=== PATIENT | male | born 1940 | race Caucasian/White ===

== ENCOUNTER 2016-06-02 00:54 | Emergency (ER) | payer OTHER ==
[~2016-06-02] VITALS: Ht 177.8 cm; Wt 90.9 kg
[~2016-06-02 00:54] MED LIST: ALEVE PM CAPLE1 EACH PO; ALTACE5 M1 PO; ASPIR 8181 M1 PO; ASPIR-LOW81 MG PO; ASPIR-TRIN325 MG PO; ASPIRIN EC325 MG PO; AVELOX; BAYER ASPIRIN325 M1 PO; CARDIZEM CD120 M1 PO; CARDIZEM CD120 MG PO; CARTIA XT120 MG PO; CARTIA XT240 MG PO; CIPROFLOXACIN500 M1 PO; COUMADIN,JANTOVE1 MG PO; DIGOXIN125 MCG PO; GLYBURID-METFO1 EAC3 PO; IMDUR60 MG PO; ISOSORBIDE DINI30 MG PO; JANUVIA100 MG PO; KEFLEX500 MG PO; LANOXIN,DIGI0.125 MG PO; LEVEMIR100 UNIT/2 SC; LO-DOSE ASPIRIN81 M2 PO; LYRICA100 MG PO; LYRICA75 MG PO; METAMUCIL0.52 GM PO; METFORMIN; METFORMIN HCL1000 MG PO; METOPROLOL SUCC25 MG PO; MOXIFLOXACIN H400 MG PO; NIACIN500 MG PO; OXYCODONE HCL10 MG PO; OXYCODONE HCL5 MG PO; PRADAXA150 MG PO; PRAVACHOL10 MG PO; PRAVASTATIN SOD10 MG PO; PRILOSEC40 MG PO; RAMIPRIL2.5 MG PO; RAMIPRIL5 MG PO; ROXICODONE5 MG PO; SOTALOL160 MG PO; TYLENOL EXTRA500 MG PO; VICODIN 5-3001 EACH PO; XARELTO20 MG PO; ZOCOR10 M1 PO; ZOLOFT100 MG PO
[2016-06-02 02:16] LABS: EOSINOPHIL (%) 2.5 % (0-5); EOSINOPHIL COUNT 0.1 K/uL (0-0.3); IMMATURE GRANULOCYTE (%) 0.4 % (0.0-0.7); INSTRUMENT ABS NEUTROPHIL CT 2.7 K/uL; LYMPHOCYTE COUNT 1.6 K/uL (1.0-2.8); MCH 29.9 PG (29.0-34.0); MCHC 35.4 G/DL (30.0-36.0); MCV 84.5 FL (86-99); MEAN PLAT.VOLUME 13.3 uM^3 (9.0-12.4); MONOCYTE (%) 8.5 % (3-12); MONOCYTE COUNT 0.4 K/uL (0-0.8); NEUTROPHIL (%) 55.8 % (45-76); NEUTROPHIL COUNT 2.7 K/uL (1.8-6.4); PLATELET COUNT 107 K/uL (156-360); RBC DIS.WIDTH-SD 45.9 % (39-53); RED BLOOD COUNT 4.38 M/uL (4.00-5.50); WHITE BLOOD COUNT 4.8 K/uL (4.1-10.2)
[2016-06-02 02:27] LABS: CHLORIDE 104 mEq/L (99-109); POTASSIUM 4.4 mEq/L (3.7-5.4); SODIUM 137 mEq/L (136-147)
[2016-06-02 02:28] LABS: INTER. NORMALIZED RATIO 1.3; PROTHROMBIN TIME 13.3 (9.2-11.2); PTT 31.6 (25-32)
[2016-06-02 02:30] LABS: ANION GAP 16 MEQ/L (2-14)
[2016-06-02 02:33] LABS: GFR ESTIMATE (CALCULATED) > 59 mL/min/
[2016-06-02 02:37] LABS: TROP-I INTERPRETATION NEGATIVE; TROPONIN-I < 0.01 ng/mL (0.0-0.30)
[2016-06-02 02:42] LABS: GLUCOSE 156 mg/dL (70-99)
[2016-06-02 02:47] LABS: UREA NITROGEN (BUN) 20 mg/dL (9-23)
[2016-06-02 03:28] VITALS: BP 117/94
== END 2016-06-02 03:48 | disposition home or self-care (01) ==
LOC: EME → EDBD 00:54 → EME 00:54
PROVIDERS: Emergency Medicine
DX: S70.01XA Contusion of right hip, initial encounter (principal); E11.9 Type 2 diabetes mellitus without complications; I10 Essential (primary) hypertension; W01.198A Fall on same level from slipping, tripping and stumbling with subsequent striking against other object, initial encounter; I69.354 Hemiplegia and hemiparesis following cerebral infarction affecting left non-dominant side; E78.5 Hyperlipidemia, unspecified; I25.2 Old myocardial infarction; Z79.01 Long term (current) use of anticoagulants; Z86.73 Personal history of transient ischemic attack (TIA), and cerebral infarction without residual deficits
CPT/HCPCS: 70450; 71010; 73502; 73630; 80048; 80162; 81003; 84484; 85025; 85610; 85730; 93005; 99281; 99284

== ENCOUNTER 2016-06-23 14:49 | Emergency (ER) | payer OTHER ==
[~2016-06-23] VITALS: Ht 179.1 cm; Wt 91.4 kg
[2016-06-23] MEDS ORDERED: XARELTO20 MG PO (16:47)
[2016-06-23 17:37] VITALS: BP 129/74
== END 2016-06-23 17:55 | disposition home or self-care (01) ==
LOC: EME 14:49
DX: I82.412 Acute embolism and thrombosis of left femoral vein (principal); I82.432 Acute embolism and thrombosis of left popliteal vein; I73.9 Peripheral vascular disease, unspecified; I48.91 Unspecified atrial fibrillation; Z79.01 Long term (current) use of anticoagulants; I10 Essential (primary) hypertension; E78.5 Hyperlipidemia, unspecified; E11.9 Type 2 diabetes mellitus without complications; Z79.82 Long term (current) use of aspirin; Z86.718 Personal history of other venous thrombosis and embolism; Z87.891 Personal history of nicotine dependence
CPT/HCPCS: 99281; 99284

== ENCOUNTER → 2016-07-22 | Outpatient (CLI) | payer MEDICARE, OTHER | END | disposition home or self-care (01) | LOC: CDC 12:14 | DX: I48.91 Unspecified atrial fibrillation (principal); R94.31 Abnormal electrocardiogram [ECG] [EKG] | CPT/HCPCS: 93000 ==

== ENCOUNTER 2016-10-21 17:08 | Inpatient (IN) | payer OTHER ==
[~2016-10-21] VITALS: Ht 177.8 cm; Wt 84.7 kg
[2016-10-21] VITALS (8 sets, daily range): BP systolic 117–145; BP diastolic 66–92
[2016-10-21 18:13] LABS: EOSINOPHIL (%) 1.1 % (0-5); EOSINOPHIL COUNT 0.1 K/uL (0-0.3); HEMATOCRIT 35.1 % (38.0-50.0); IMMATURE GRANULOCYTE (%) 0.2 % (0.0-0.7); INSTRUMENT ABS NEUTROPHIL CT 3.2 K/uL; LYMPHOCYTE COUNT 1.7 K/uL (1.0-2.8); MCH 30.1 PG (29.0-34.0); MCHC 34.8 G/DL (30.0-36.0); MCV 86.7 FL (86-99); MEAN PLAT.VOLUME 13.3 uM^3 (9.0-12.4); MONOCYTE (%) 8.3 % (3-12); MONOCYTE COUNT 0.5 K/uL (0-0.8); NEUTROPHIL (%) 58.5 % (45-76); NEUTROPHIL COUNT 3.2 K/uL (1.8-6.4); PLATELET COUNT 100 K/uL (156-360); RBC DIS.WIDTH-SD 50.2 % (39-53); RED BLOOD COUNT 4.05 M/uL (4.00-5.50); WHITE BLOOD COUNT 5.4 K/uL (4.1-10.2)
[2016-10-21 18:23] LABS: CHLORIDE 106 mEq/L (99-109); POTASSIUM 4.8 mEq/L (3.7-5.4); SODIUM 138 mEq/L (136-147)
[2016-10-21 18:25] LABS: GLUCOSE 95 mg/dL (70-99)
[2016-10-21 18:27] LABS: ANION GAP 13 MEQ/L (2-14)
[2016-10-21 18:29] LABS: ALKALINE PHOSPHATASE 73 IU/L (3-129); GFR ESTIMATE (CALCULATED) > 59 mL/min/
[2016-10-21 18:30] LABS: UREA NITROGEN (BUN) 19 mg/dL (9-23)
[2016-10-21 18:40] LABS: C-REACTIVE PROTEIN 57.5 MG/L (0-10); SAMPLE HEMOLYSIS CHECK 0; SAMPLE ICTERIC CHECK 0; SAMPLE LIPEMIA CHECK 0
[2016-10-21 18:54] LABS: ERTH.SED.RATE 13 MM/HR (0-20)
[2016-10-21] MEDS ORDERED: TYLENOL EXTRA500 MG PO (19:10)
[2016-10-21] MEDS ORDERED: ZOLOFT50 MG PO (19:10)
[2016-10-21] MEDS ORDERED: ALEVE PM CAPLE1 EACH PO (19:13)
[2016-10-21 23:20] LABS: POINT-OF-CARE METER ID UU13113747
[2016-10-22 03:40] VITALS: BP 129/66
[2016-10-22 03:48] VITALS: BP 129/66
[2016-10-22 06:56] LABS: ANION GAP 8 MEQ/L (2-14); CHLORIDE 107 MEQ/L (99-109); GFR ESTIMATE (CALCULATED) > 59 mL/min/; GLUCOSE 106 mg/dL (70-99); POTASSIUM 4.6 MEQ/L (3.7-5.4); SAMPLE HEMOLYSIS CHECK 0; SAMPLE ICTERIC CHECK 0; SAMPLE LIPEMIA CHECK 0; SODIUM 139 MEQ/L (136-147); UREA NITROGEN (BUN) 17 mg/dL (9-23)
[2016-10-22 07:15] LABS: POINT-OF-CARE METER ID UU13113747
[2016-10-22 07:20] LABS: EOSINOPHIL (%) 2.5 % (0-5); EOSINOPHIL COUNT 0.1 K/uL (0-0.3); IMMATURE GRANULOCYTE (%) 0.4 % (0.0-0.7); INSTRUMENT ABS NEUTROPHIL CT 2.5 K/uL; LYMPHOCYTE COUNT 1.7 K/uL (1.0-2.8); MCH 30.2 PG (29.0-34.0); MCHC 34.4 G/DL (30.0-36.0); MCV 87.9 FL (86-99); MONOCYTE (%) 10.1 % (3-12); MONOCYTE COUNT 0.5 K/uL (0-0.8); NEUTROPHIL (%) 50.9 % (45-76); NEUTROPHIL COUNT 2.5 K/uL (1.8-6.4); PLATELET COUNT 79 K/uL (156-360); RBC DIS.WIDTH-SD 51.7 % (39-53); RED BLOOD COUNT 3.64 M/uL (4.00-5.50); WHITE BLOOD COUNT 4.8 K/uL (4.1-10.2)
[2016-10-22 07:42] VITALS: BP 108/58
[2016-10-22 11:10] VITALS: BP 143/76
[2016-10-22 11:26] LABS: POINT-OF-CARE METER ID UU13113747
[2016-10-22 16:10] VITALS: BP 121/62
[2016-10-22 16:29] LABS: POINT-OF-CARE METER ID UU14117124
[2016-10-22 20:53] VITALS: BP 144/69
[2016-10-22 21:38] LABS: POINT-OF-CARE METER ID UU14117124
[2016-10-23] VITALS (7 sets, daily range): BP systolic 110–147; BP diastolic 59–69
[2016-10-23 06:44] LABS: POINT-OF-CARE METER ID UU14117124
[2016-10-23 11:29] LABS: POINT-OF-CARE METER ID UU14117124
[2016-10-23 15:32] LABS: POINT-OF-CARE METER ID UU14117124
[2016-10-23 21:30] LABS: POINT-OF-CARE METER ID UU14117124
[2016-10-24 03:40] VITALS: BP 105/55
[2016-10-24 06:43] LABS: EOSINOPHIL (%) 2.1 % (0-5); EOSINOPHIL COUNT 0.1 K/uL (0-0.3); HEMATOCRIT 31.8 % (38.0-50.0); IMMATURE GRANULOCYTE (%) 0.2 % (0.0-0.7); INSTRUMENT ABS NEUTROPHIL CT 2.4 K/uL; LYMPHOCYTE COUNT 1.5 K/uL (1.0-2.8); MCHC 34.3 G/DL (30.0-36.0); MCV 87.6 FL (86-99); MONOCYTE (%) 8.5 % (3-12); MONOCYTE COUNT 0.4 K/uL (0-0.8); NEUTROPHIL (%) 54.8 % (45-76); NEUTROPHIL COUNT 2.4 K/uL (1.8-6.4); RBC DIS.WIDTH-CV 15.9 % (11.8-14.6); RBC DIS.WIDTH-SD 50.9 % (39-53); RED BLOOD COUNT 3.63 M/uL (4.00-5.50); WHITE BLOOD COUNT 4.3 K/uL (4.1-10.2)
[2016-10-24 06:47] LABS: POINT-OF-CARE METER ID UU14117124
[2016-10-24 06:58] LABS: ALKALINE PHOSPHATASE 52 IU/L (3-129); ANION GAP 10 MEQ/L (2-14); CHLORIDE 109 MEQ/L (99-109); GFR ESTIMATE (CALCULATED) > 59 mL/min/; GLUCOSE 97 mg/dL (70-99); POTASSIUM 4.7 MEQ/L (3.7-5.4); SAMPLE HEMOLYSIS CHECK 0; SAMPLE ICTERIC CHECK 0; SAMPLE LIPEMIA CHECK 0; SODIUM 142 MEQ/L (136-147); TOTAL BILIRUBIN 0.8 MG/DL (0.0-1.0); UREA NITROGEN (BUN) 9 mg/dL (9-23)
[2016-10-24 07:15] LABS: MEAN PLAT.VOLUME 12.6 uM^3 (9.0-12.4); PLAT.SUFFICIENCY DECREASED; PLATELET COUNT 83 K/uL (156-360)
[2016-10-24 07:32] VITALS: BP 120/64
[2016-10-24 11:26] VITALS: BP 133/79
[2016-10-24 11:51] LABS: POINT-OF-CARE METER ID UU14208753
[2016-10-24 15:40] VITALS: BP 131/60
[2016-10-24 16:51] LABS: POINT-OF-CARE METER ID UU14208753
[2016-10-24 19:30] VITALS: BP 133/61
[2016-10-25 01:04] VITALS: BP 121/57
[2016-10-25 05:05] VITALS: BP 104/56
[2016-10-25 06:27] LABS: POINT-OF-CARE METER ID UU14208753
[2016-10-25 08:42] VITALS: BP 110/60
[2016-10-25 12:01] LABS: POINT-OF-CARE METER ID UU14208753
[2016-10-25 16:40] VITALS: BP 134/62
[2016-10-25 16:48] LABS: POINT-OF-CARE METER ID UU14208753
[2016-10-25 23:14] VITALS: BP 142/58
[2016-10-26 04:16] VITALS: BP 109/62
[2016-10-26 06:42] LABS: POINT-OF-CARE METER ID UU14188577
[2016-10-26 08:35] VITALS: BP 168/64
[2016-10-26 11:59] VITALS: BP 120/62
[2016-10-26 16:54] VITALS: BP 124/59
[2016-10-26 17:08] LABS: POINT-OF-CARE METER ID UU14208753
[2016-10-26 20:13] VITALS: BP 144/72
[2016-10-26 22:19] LABS: POINT-OF-CARE METER ID UU14208753
[2016-10-26 23:25] VITALS: BP 155/72
[2016-10-27 04:19] VITALS: BP 125/61
[2016-10-27] MEDS ORDERED: SERTRALINE HCL100 MG PO (07:03)
[2016-10-27] MEDS ORDERED: PRAVASTATIN SOD40 MG PO (07:03)
[2016-10-27] MEDS ORDERED: VANCOMYCIN HCL1 GM IV (07:09)
[2016-10-27] MEDS ORDERED: CEFEPIME-D2 GM/50 ML IV (07:09)
[2016-10-27 08:42] VITALS: BP 133/69
[2016-10-27 11:43] VITALS: BP 119/69
[2016-10-27 11:43] LABS: POINT-OF-CARE METER ID UU14117124
== END 2016-10-27 18:27 | disposition home or self-care (01) | DRG 638 ==
LOC: EME 17:08 → EDOF 19:38 → 3EAST 19:38 → CANRESERV 19:42 → ENRESERV 19:42 → CANRESERV 19:44 → ENRESERV 20:53 → EDOF 10-22 08:31 → ENRESERV 10-22 12:30 → 3EAST 10-22 14:02
PROVIDERS: Emergency Medicine; Hospitalist; Nurse Practitioner Adult Health; Pediatrics; Physician Assistant Medical
PROC: 02HV33Z Insertion of Infusion Device into Superior Vena Cava, Percutaneous Approach (ICD-10-PCS; principal; 2016-10-27)
DX: E11.69 Type 2 diabetes mellitus with other specified complication (principal); E11.42 Type 2 diabetes mellitus with diabetic polyneuropathy; E11.621 Type 2 diabetes mellitus with foot ulcer; M86.172 Other acute osteomyelitis, left ankle and foot; E11.51 Type 2 diabetes mellitus with diabetic peripheral angiopathy without gangrene; E11.628 Type 2 diabetes mellitus with other skin complications; L89.622 Pressure ulcer of left heel, stage 2; L97.529 Non-pressure chronic ulcer of other part of left foot with unspecified severity; E78.5 Hyperlipidemia, unspecified; I10 Essential (primary) hypertension; F32.9 Major depressive disorder, single episode, unspecified; L03.032 Cellulitis of left toe; Z87.891 Personal history of nicotine dependence; I48.2 Chronic atrial fibrillation; Z79.01 Long term (current) use of anticoagulants; I25.10 Atherosclerotic heart disease of native coronary artery without angina pectoris; Z86.73 Personal history of transient ischemic attack (TIA), and cerebral infarction without residual deficits; Z86.718 Personal history of other venous thrombosis and embolism; Z79.84 Long term (current) use of oral hypoglycemic drugs; Z79.82 Long term (current) use of aspirin; Z82.49 Family history of ischemic heart disease and other diseases of the circulatory system; Z83.3 Family history of diabetes mellitus; Z82.3 Family history of stroke; Z80.7 Family history of other malignant neoplasms of lymphoid, hematopoietic and related tissues; Z79.4 Long term (current) use of insulin; S91.301D Unspecified open wound, right foot, subsequent encounter; B95.62 Methicillin resistant Staphylococcus aureus infection as the cause of diseases classified elsewhere; B96.5 Pseudomonas (aeruginosa) (mallei) (pseudomallei) as the cause of diseases classified elsewhere; I35.0 Nonrheumatic aortic (valve) stenosis; K43.9 Ventral hernia without obstruction or gangrene; M48.06 Spinal stenosis, lumbar region; I89.1 Lymphangitis; K21.9 Gastro-esophageal reflux disease without esophagitis; Z79.899 Other long term (current) drug therapy; R74.0 Nonspecific elevation of levels of transaminase and lactic acid dehydrogenase [LDH]
CPT/HCPCS: 71010; 73720; 80048; 80053; 80202; 82565; 82948; 83605; 85025; 85651; 86140; 87040; 87070; 87075; 87076; 87077; 87147; 87186; 87205; 99281; 99285; A6260; C1769; J0692; J1815; J2543; J3370; J7050; J7120

== ENCOUNTER 2017-06-29 23:56 | Emergency (ER) | payer OTHER ==
[~2017-06-29] VITALS: Ht 177.8 cm; Wt 83.1 kg
[~2017-06-29 23:56] MED LIST changes: +CEFEPIME-D2 GM/50 ML IV; +PRAVASTATIN SOD40 MG PO; +SERTRALINE HCL100 MG PO; +VANCOMYCIN HCL1 GM IV; +ZOLOFT50 MG PO
[2017-06-30 01:22] LABS: HEMATOCRIT 30.8 % (38.0-50.0); HEMOGLOBIN 11.1 G/DL (12.5-16.6); MCH 30.6 PG (29.0-34.0); MCV 84.8 FL (86-99); PLATELET COUNT 69 K/uL (156-360); RBC DIS.WIDTH-CV 15.6 % (11.8-14.6); RBC DIS.WIDTH-SD 47.6 % (39-53); RED BLOOD COUNT 3.63 M/uL (4.00-5.50); WHITE BLOOD COUNT 5.5 K/uL (4.1-10.2)
[2017-06-30 01:28] LABS: CHLORIDE 100 mEq/L (99-109); POTASSIUM 4.7 mEq/L (3.7-5.4); SODIUM 134 mEq/L (136-147)
[2017-06-30 01:33] LABS: CREATININE 1.7 mg/dL (0.6-1.3); GFR ESTIMATE (CALCULATED) 42 mL/min/ (58.99-99999)
[2017-06-30 01:34] LABS: UREA NITROGEN (BUN) 25 mg/dL (9-23)
[2017-06-30 01:37] LABS: TROP-I INTERPRETATION NEGATIVE; TROPONIN-I 0.02 ng/mL (0.0-0.30)
[2017-06-30 01:42] LABS: GLUCOSE 513 mg/dL (70-99)
[2017-06-30 02:05] LABS: APPEARANCE CLEAR ((CLEAR)); BILIRUBIN NEGATIVE; BLOOD NEGATIVE; COLOR STRAW ((YELLOW)); GLUCOSE (STRIP) >=500; KETONES NEGATIVE; LEUKOCYTES NEGATIVE; NITRITE NEGATIVE; PROTEIN (STRIP) 30; UCUL ADDED? NO; UROBILINOGEN 0.2 MG/DL (0.2-1.0)
[2017-06-30 05:29] VITALS: BP 128/55
== END 2017-06-30 05:33 | disposition home or self-care (01) ==
LOC: EME → EDBD 23:56 → EME 23:56
PROVIDERS: Emergency Medicine
DX: E11.65 Type 2 diabetes mellitus with hyperglycemia (principal); S70.01XA Contusion of right hip, initial encounter; Z79.4 Long term (current) use of insulin; Z91.14 Patient's other noncompliance with medication regimen; Z79.01 Long term (current) use of anticoagulants; Z79.82 Long term (current) use of aspirin; W18.39XA Other fall on same level, initial encounter; Z86.718 Personal history of other venous thrombosis and embolism; I10 Essential (primary) hypertension; Z86.73 Personal history of transient ischemic attack (TIA), and cerebral infarction without residual deficits; Z87.891 Personal history of nicotine dependence
CPT/HCPCS: 70450; 71046; 73502; 80048; 81003; 82010; 82803; 82948; 83605; 84484; 85027; 93005; 99281; 99285; J7120

== ENCOUNTER 2017-08-01 15:24 | Inpatient (IN) | payer OTHER ==
[~2017-08-01] VITALS: Ht 177.8 cm; Wt 93.5 kg
[2017-08-01 16:44] LABS: INTER. NORMALIZED RATIO 3.5
[2017-08-01 16:47] LABS: PTT 33.7 SEC (25-37)
[2017-08-01 16:48] LABS: BASOPHIL (%) 0.2 % (0-1); EOSINOPHIL (%) 0.2 % (0-5); HEMATOCRIT 28.8 % (38.0-50.0); HEMOGLOBIN 10.3 G/DL (12.5-16.6); IMMATURE GRANULOCYTE (%) 0.2 % (0.0-0.7); LYMPHOCYTE (%) 9.2 % (15-42); LYMPHOCYTE COUNT 0.4 K/uL (1.0-2.8); MCH 29.2 PG (29.0-34.0); MCHC 35.8 G/DL (30.0-36.0); MCV 81.6 FL (86-99); MONOCYTE (%) 10.7 % (3-12); MONOCYTE COUNT 0.5 K/uL (0-0.8); NEUTROPHIL (%) 79.5 % (45-76); NEUTROPHIL COUNT 3.6 K/uL (1.8-6.4); PLATELET COUNT 69 K/uL (156-360); RED BLOOD COUNT 3.53 M/uL (4.00-5.50); WHITE BLOOD COUNT 4.5 K/uL (4.1-10.2)
[2017-08-01 16:49] LABS: ALBUMIN 3.6 g/dL (3.2-4.8); CHLORIDE 101 mEq/L (99-109); POTASSIUM 4.8 mEq/L (3.7-5.4); SODIUM 133 mEq/L (136-147)
[2017-08-01 16:50] LABS: MAGNESIUM 1.8 mg/dL (1.3-2.7)
[2017-08-01 16:51] LABS: GLUCOSE 304 mg/dL (70-99); TOTAL PROTEIN 7.1 g/dL (6.4-8.3)
[2017-08-01 16:53] LABS: TOTAL BILIRUBIN 1.5 mg/dL (0.0-1.0)
[2017-08-01 16:55] LABS: ALKALINE PHOSPHATASE 108 IU/L (3-129); CREATININE 1.6 mg/dL (0.6-1.3); GFR ESTIMATE (CALCULATED) 45 mL/min/ (58.99-99999)
[2017-08-01 16:56] LABS: UREA NITROGEN (BUN) 32 mg/dL (9-23)
[2017-08-01 16:57] LABS: AST (GOT) 20 IU/L (2-34)
[2017-08-01 16:58] LABS: ALT (GPT) 16 IU/L (3-49)
[2017-08-01] MEDS ORDERED: PRAVACHOL40 MG PO (16:58)
[2017-08-01] MEDS ORDERED: ZOLOFT50 MG PO (16:59)
[2017-08-01] MEDS ORDERED: TOUJEO SOL300 UNIT/1 SC (16:59)
[2017-08-01] MEDS ORDERED: HUMALOG100 UNIT/1 SC (17:00)
[2017-08-01 18:40] LABS: APPEARANCE CLEAR ((CLEAR)); BILIRUBIN NEGATIVE; BLOOD NEGATIVE; COLOR YELLOW ((YELLOW)); GLUCOSE (STRIP) >=500; KETONES NEGATIVE; LEUKOCYTES NEGATIVE; NITRITE NEGATIVE; PROTEIN (STRIP) 100
[2017-08-01 19:02] LABS: BACTERIA RARE /HPF; EPITHELIAL CELLS NONE SEEN /HPF; HYALINE CASTS 0-5 /LPF; MUCUS TRACE /LPF; RED BLOOD CELLS 0-5 /HPF (0-5); UCUL ADDED? NO; WHITE BLOOD CELLS 0-5 /HPF (0-5)
[2017-08-01 21:42] VITALS: BP 118/68
[2017-08-01 23:02] VITALS: BP 85/45
[2017-08-02 00:38] VITALS: BP 102/52
[2017-08-02 03:27] VITALS: BP 115/58
[2017-08-02 05:55] LABS: BASOPHIL (%) 0.3 % (0-1); EOSINOPHIL (%) 0 % (0-5); HEMATOCRIT 27.1 % (38.0-50.0); HEMOGLOBIN 9.1 G/DL (12.5-16.6); IMMATURE GRANULOCYTE (%) 0.3 % (0.0-0.7); LYMPHOCYTE (%) 10.3 % (15-42); LYMPHOCYTE COUNT 0.4 K/uL (1.0-2.8); MCH 28.3 PG (29.0-34.0); MCHC 33.6 G/DL (30.0-36.0); MCV 84.2 FL (86-99); MONOCYTE COUNT 0.4 K/uL (0-0.8); NEUTROPHIL (%) 79.1 % (45-76); NEUTROPHIL COUNT 3.2 K/uL (1.8-6.4); PLATELET COUNT 54 K/uL (156-360); RBC DIS.WIDTH-CV 15.5 % (11.8-14.6); RBC DIS.WIDTH-SD 47.1 % (39-53); RED BLOOD COUNT 3.22 M/uL (4.00-5.50)
[2017-08-02 06:19] LABS: CHLORIDE 106 MEQ/L (99-109); CREATININE 1.3 MG/DL (0.6-1.3); GFR ESTIMATE (CALCULATED) 57 mL/min/ (58.99-99999); GLUCOSE 195 mg/dL (70-99); POTASSIUM 4.7 MEQ/L (3.7-5.4); SODIUM 134 MEQ/L (136-147); UREA NITROGEN (BUN) 23 mg/dL (9-23)
[2017-08-02 07:32] VITALS: BP 101/56
[2017-08-02 11:12] VITALS: BP 101/60
[2017-08-02 16:20] VITALS: BP 97/50
[2017-08-02 23:06] VITALS: BP 106/52
[2017-08-03] VITALS (14 sets, daily range): BP systolic 101–156; BP diastolic 54–75
[2017-08-03 05:35] LABS: HEMATOCRIT 26.7 % (38.0-50.0); HEMOGLOBIN 8.9 G/DL (12.5-16.6); MCHC 33.3 G/DL (30.0-36.0); PLATELET COUNT 54 K/uL (156-360); RBC DIS.WIDTH-CV 15.5 % (11.8-14.6); RBC DIS.WIDTH-SD 47.2 % (39-53); RED BLOOD COUNT 3.18 M/uL (4.00-5.50); WHITE BLOOD COUNT 5.3 K/uL (4.1-10.2)
[2017-08-03 05:55] LABS: ALBUMIN 2.8 G/DL (3.2-4.8); ALKALINE PHOSPHATASE 78 IU/L (3-129); ALT (GPT) 13 IU/L (3-49); AST (GOT) 20 IU/L (2-34); CHLORIDE 105 MEQ/L (99-109); CREATININE 1.4 MG/DL (0.6-1.3); GFR ESTIMATE (CALCULATED) 52 mL/min/ (58.99-99999); GLUCOSE 140 mg/dL (70-99); POTASSIUM 4.4 MEQ/L (3.7-5.4); SODIUM 134 MEQ/L (136-147); TOTAL BILIRUBIN 1.3 MG/DL (0.0-1.0); TOTAL PROTEIN 5.3 G/DL (6.4-8.3); UREA NITROGEN (BUN) 20 mg/dL (9-23)
[2017-08-03 06:07] LABS: ABS NEUTROPHIL COUNT 4.3; ANISOCYTOSIS 1+; BASOPHILS 0.9 %; EOSINOPHIL ABS CT 0; LYMPHOCYTES 12.3 % (15.0-45.0); MICROCYTOSIS 1+; MONOCYTES 5.3 % (0-9.0); OVALOCYTES 3+; PLAT.SUFFICIENCY VERY DECREASED; POIKILOCYTOSIS 3+; SEG.NEUTROPHILS 67.5 % (46.0-76.0)
[2017-08-03 09:31] LABS: TROP-I INTERPRETATION NEGATIVE; TROPONIN-I 0.06 ng/mL (0.0-0.30)
[2017-08-03 15:52] LABS: TROP-I INTERPRETATION NEGATIVE; TROPONIN-I 0.05 ng/mL (0.0-0.30)
[2017-08-03 20:47] LABS: TROP-I INTERPRETATION NEGATIVE; TROPONIN-I 0.04 ng/mL (0.0-0.30)
[2017-08-04] VITALS (7 sets, daily range): BP systolic 107–128; BP diastolic 52–72
[2017-08-04 07:15] LABS: BASOPHIL (%) 0.1 % (0-1); EOSINOPHIL (%) 0.1 % (0-5); HEMATOCRIT 25.5 % (38.0-50.0); HEMOGLOBIN 8.8 G/DL (12.5-16.6); IMMATURE GRANULOCYTE (%) 0.3 % (0.0-0.7); LYMPHOCYTE (%) 15.1 % (15-42); LYMPHOCYTE COUNT 1.1 K/uL (1.0-2.8); MCH 28.8 PG (29.0-34.0); MCHC 34.5 G/DL (30.0-36.0); MCV 83.3 FL (86-99); MONOCYTE (%) 8.4 % (3-12); MONOCYTE COUNT 0.6 K/uL (0-0.8); NEUTROPHIL COUNT 5.5 K/uL (1.8-6.4); RBC DIS.WIDTH-CV 15.9 % (11.8-14.6); RED BLOOD COUNT 3.06 M/uL (4.00-5.50); WHITE BLOOD COUNT 7.2 K/uL (4.1-10.2)
[2017-08-04 07:36] LABS: ALBUMIN 2.8 G/DL (3.2-4.8); ALKALINE PHOSPHATASE 74 IU/L (3-129); ALT (GPT) 17 IU/L (3-49); AST (GOT) 20 IU/L (2-34); CHLORIDE 104 MEQ/L (99-109); CREATININE 1.4 MG/DL (0.6-1.3); GFR ESTIMATE (CALCULATED) 52 mL/min/ (58.99-99999); GLUCOSE 130 mg/dL (70-99); POTASSIUM 3.7 MEQ/L (3.7-5.4); SODIUM 134 MEQ/L (136-147); TOTAL BILIRUBIN 1.7 MG/DL (0.0-1.0); TOTAL PROTEIN 5.6 G/DL (6.4-8.3); UREA NITROGEN (BUN) 19 mg/dL (9-23)
[2017-08-04 07:58] LABS: PLAT.SUFFICIENCY DECREASED; PLATELET COUNT 56 K/uL (156-360)
[2017-08-04 10:19] LABS: HEMOGLOBIN A1c (GLYCOHEMOGLOB) 8.7 % (Below 5.7)
[2017-08-04 18:01] LABS: HEMATOCRIT 26.3 % (38.0-50.0); HEMOGLOBIN 8.7 G/DL (12.5-16.6); MCV 83.2 FL (86-99)
[2017-08-05 00:06] VITALS: BP 122/64
[2017-08-05 02:32] VITALS: BP 126/70
[2017-08-05 04:05] LABS: BASOPHIL (%) 0.2 % (0-1); EOSINOPHIL (%) 0.9 % (0-5); EOSINOPHIL COUNT 0.1 K/uL (0-0.3); HEMATOCRIT 23.9 % (38.0-50.0); HEMOGLOBIN 8.4 G/DL (12.5-16.6); IMMATURE GRANULOCYTE (%) 0.4 % (0.0-0.7); LYMPHOCYTE (%) 18.1 % (15-42); MCH 28.9 PG (29.0-34.0); MCHC 35.1 G/DL (30.0-36.0); MCV 82.1 FL (86-99); MONOCYTE (%) 7.8 % (3-12); MONOCYTE COUNT 0.4 K/uL (0-0.8); NEUTROPHIL (%) 72.6 % (45-76); PLATELET COUNT 60 K/uL (156-360); RBC DIS.WIDTH-CV 15.6 % (11.8-14.6); RBC DIS.WIDTH-SD 46.7 % (39-53); RED BLOOD COUNT 2.91 M/uL (4.00-5.50); WHITE BLOOD COUNT 5.5 K/uL (4.1-10.2)
[2017-08-05 04:23] LABS: CHLORIDE 106 mEq/L (99-109); POTASSIUM 3.6 mEq/L (3.7-5.4); SODIUM 135 mEq/L (136-147)
[2017-08-05 04:25] LABS: GLUCOSE 140 mg/dL (70-99)
[2017-08-05 04:29] LABS: CREATININE 1.2 mg/dL (0.6-1.3); GFR ESTIMATE (CALCULATED) > 59 mL/min/ (58.99-99999); UREA NITROGEN (BUN) 23 mg/dL (9-23)
[2017-08-05 07:44] VITALS: BP 131/70
[2017-08-05 12:24] VITALS: BP 128/65
[2017-08-05 20:16] VITALS: BP 137/84
[2017-08-05 23:55] VITALS: BP 123/85
[2017-08-06 04:15] VITALS: BP 117/67
[2017-08-06 05:09] LABS: CHLORIDE 108 mEq/L (99-109); POTASSIUM 4.1 mEq/L (3.7-5.4); SODIUM 138 mEq/L (136-147)
[2017-08-06 05:10] LABS: GLUCOSE 132 mg/dL (70-99)
[2017-08-06 05:14] LABS: CREATININE 1.4 mg/dL (0.6-1.3); GFR ESTIMATE (CALCULATED) 52 mL/min/ (58.99-99999)
[2017-08-06 05:15] LABS: BASOPHIL (%) 0.3 % (0-1); EOSINOPHIL (%) 2.8 % (0-5); EOSINOPHIL COUNT 0.1 K/uL (0-0.3); HEMATOCRIT 23.7 % (38.0-50.0); HEMOGLOBIN 8.1 G/DL (12.5-16.6); IMMATURE GRANULOCYTE (%) 0.3 % (0.0-0.7); LYMPHOCYTE (%) 27.9 % (15-42); LYMPHOCYTE COUNT 1.1 K/uL (1.0-2.8); MCH 28.5 PG (29.0-34.0); MCHC 34.2 G/DL (30.0-36.0); MCV 83.5 FL (86-99); MONOCYTE (%) 8.4 % (3-12); MONOCYTE COUNT 0.3 K/uL (0-0.8); NEUTROPHIL (%) 60.3 % (45-76); NEUTROPHIL COUNT 2.4 K/uL (1.8-6.4); PLATELET COUNT 66 K/uL (156-360); RBC DIS.WIDTH-CV 15.7 % (11.8-14.6); RBC DIS.WIDTH-SD 47.4 % (39-53); RED BLOOD COUNT 2.84 M/uL (4.00-5.50); UREA NITROGEN (BUN) 22 mg/dL (9-23); WHITE BLOOD COUNT 3.9 K/uL (4.1-10.2)
[2017-08-06 08:15] VITALS: BP 162/67
[2017-08-06 11:45] VITALS: BP 127/59
[2017-08-06 16:52] VITALS: BP 141/69
[2017-08-06 19:10] VITALS: BP 136/60
[2017-08-06 23:33] VITALS: BP 110/56
[2017-08-07] VITALS (7 sets, daily range): BP systolic 108–149; BP diastolic 56–76
[2017-08-07 05:59] LABS: BASOPHIL (%) 0.3 % (0-1); EOSINOPHIL (%) 2.7 % (0-5); EOSINOPHIL COUNT 0.1 K/uL (0-0.3); HEMATOCRIT 24.1 % (38.0-50.0); HEMOGLOBIN 7.9 G/DL (12.5-16.6); IMMATURE GRANULOCYTE (%) 0.6 % (0.0-0.7); LYMPHOCYTE (%) 32.7 % (15-42); LYMPHOCYTE COUNT 1.1 K/uL (1.0-2.8); MCH 27.6 PG (29.0-34.0); MCHC 32.8 G/DL (30.0-36.0); MCV 84.3 FL (86-99); MONOCYTE (%) 10.4 % (3-12); MONOCYTE COUNT 0.4 K/uL (0-0.8); NEUTROPHIL (%) 53.3 % (45-76); NEUTROPHIL COUNT 1.8 K/uL (1.8-6.4); RBC DIS.WIDTH-CV 15.7 % (11.8-14.6); RBC DIS.WIDTH-SD 48.9 % (39-53); RED BLOOD COUNT 2.86 M/uL (4.00-5.50); WHITE BLOOD COUNT 3.4 K/uL (4.1-10.2)
[2017-08-07 06:16] LABS: CHLORIDE 108 MEQ/L (99-109); CREATININE 1.3 MG/DL (0.6-1.3); GFR ESTIMATE (CALCULATED) 57 mL/min/ (58.99-99999); GLUCOSE 133 mg/dL (70-99); SODIUM 139 MEQ/L (136-147); UREA NITROGEN (BUN) 21 mg/dL (9-23)
[2017-08-07 06:57] LABS: PLAT.SUFFICIENCY DECREASED; PLATELET COUNT 73 K/uL (156-360)
[2017-08-08 00:11] VITALS: BP 151/75
[2017-08-08 01:26] VITALS: BP 117/59
[2017-08-08 05:35] LABS: HEMATOCRIT 27.4 % (38.0-50.0); MCH 27.7 PG (29.0-34.0); MCHC 32.8 G/DL (30.0-36.0); MCV 84.3 FL (86-99); PLATELET COUNT 72 K/uL (156-360); RBC DIS.WIDTH-CV 15.4 % (11.8-14.6); RBC DIS.WIDTH-SD 47.1 % (39-53); RED BLOOD COUNT 3.25 M/uL (4.00-5.50); WHITE BLOOD COUNT 3.2 K/uL (4.1-10.2)
[2017-08-08 07:35] VITALS: BP 151/66
[2017-08-08 12:10] VITALS: BP 142/68
[2017-08-08 17:12] VITALS: BP 133/72
[2017-08-08 19:55] VITALS: BP 154/74
[2017-08-09] VITALS (7 sets, daily range): BP systolic 119–144; BP diastolic 56–85
[2017-08-09 06:34] LABS: HEMATOCRIT 27.9 % (38.0-50.0); HEMOGLOBIN 9.2 G/DL (12.5-16.6); MCH 28.2 PG (29.0-34.0); MCV 85.6 FL (86-99); RBC DIS.WIDTH-CV 15.6 % (11.8-14.6); RBC DIS.WIDTH-SD 47.8 % (39-53); RED BLOOD COUNT 3.26 M/uL (4.00-5.50); WHITE BLOOD COUNT 3.8 K/uL (4.1-10.2)
[2017-08-09 06:44] LABS: PLATELET COUNT 95 K/uL (156-360)
[2017-08-10 03:16] VITALS: BP 125/64
[2017-08-10 06:09] LABS: HEMATOCRIT 27.4 % (38.0-50.0); HEMOGLOBIN 8.9 G/DL (12.5-16.6); MCH 27.6 PG (29.0-34.0); MCHC 32.5 G/DL (30.0-36.0); MCV 84.8 FL (86-99); PLATELET COUNT 110 K/uL (156-360); RBC DIS.WIDTH-CV 15.4 % (11.8-14.6); RBC DIS.WIDTH-SD 46.7 % (39-53); RED BLOOD COUNT 3.23 M/uL (4.00-5.50); WHITE BLOOD COUNT 4.1 K/uL (4.1-10.2)
[2017-08-10 07:13] VITALS: BP 140/62
[2017-08-10 11:23] VITALS: BP 120/65
[2017-08-10 15:12] VITALS: BP 138/63
[2017-08-10 15:24] LABS: HEMATOCRIT 26.7 % (38.0-50.0); HEMOGLOBIN 8.8 G/DL (12.5-16.6); MCH 28.1 PG (29.0-34.0); MCV 85.3 FL (86-99); PLATELET COUNT 117 K/uL (156-360); RBC DIS.WIDTH-CV 15.7 % (11.8-14.6); RBC DIS.WIDTH-SD 48.3 % (39-53); RED BLOOD COUNT 3.13 M/uL (4.00-5.50); WHITE BLOOD COUNT 3.8 K/uL (4.1-10.2)
[2017-08-10 19:31] VITALS: BP 143/67
[2017-08-11] VITALS (7 sets, daily range): BP systolic 121–155; BP diastolic 58–69
[2017-08-11 06:06] LABS: ERTH.SED.RATE 44 MM/HR (0-20)
[2017-08-11 09:05] LABS: DIGOXIN 0.6 ng/mL (0.8-2.0); HEMATOCRIT 27.6 % (38.0-50.0); HEMOGLOBIN 9.1 G/DL (12.5-16.6); MCH 28.2 PG (29.0-34.0); MCV 85.4 FL (86-99); RBC DIS.WIDTH-CV 15.5 % (11.8-14.6); RED BLOOD COUNT 3.23 M/uL (4.00-5.50); WHITE BLOOD COUNT 3.9 K/uL (4.1-10.2)
[2017-08-11 09:21] LABS: PLATELET COUNT 104 K/uL (156-360)
[2017-08-11 09:41] LABS: C-REACTIVE PROTEIN 37.3 MG/L (0-10); CHLORIDE 108 MEQ/L (99-109); CREATININE 1.3 MG/DL (0.6-1.3); GFR ESTIMATE (CALCULATED) 57 mL/min/ (58.99-99999); GLUCOSE 134 mg/dL (70-99); SODIUM 140 MEQ/L (136-147); UREA NITROGEN (BUN) 17 mg/dL (9-23)
[2017-08-12 03:37] VITALS: BP 111/56
[2017-08-12 07:50] VITALS: BP 128/72
[2017-08-12] MEDS ORDERED: CORDARONE200 MG PO (11:02)
[2017-08-12] MEDS ORDERED: GABAPENTIN100 MG PO (11:02)
[2017-08-12] MEDS ORDERED: BACTRIM,SEPT1 TABLET PO (11:20)
== END 2017-08-12 13:48 | disposition home health service (06) | DRG 854 ==
LOC: EME 15:24 → EDOF 19:13 → ENRESERV 19:16 → 5EAST 21:17 → 4EAST 08-03 09:28 → ENRESERV 08-06 17:55 → 5SOUTH 08-06 19:22
PROVIDERS: Emergency Medicine; Hospitalist; Internal Medicine; Internal Medicine Infectious Disease; Nurse Practitioner Family; Physician Assistant; Physician Assistant Surgical; Student in an Organized Health Care Education/Training Program
PROC: 0Y6N0Z9 Detachment at Left Foot, Partial 1st Ray, Open Approach (ICD-10-PCS; principal; 2017-08-01)
PROC: 30233R1 Transfusion of Nonautologous Platelets into Peripheral Vein, Percutaneous Approach (ICD-10-PCS; 2017-08-04)
PROC: 30233N1 Transfusion of Nonautologous Red Blood Cells into Peripheral Vein, Percutaneous Approach (ICD-10-PCS; 2017-08-07)
DX: A41.02 Sepsis due to Methicillin resistant Staphylococcus aureus (principal); E11.69 Type 2 diabetes mellitus with other specified complication; M00.072 Staphylococcal arthritis, left ankle and foot; M86.672 Other chronic osteomyelitis, left ankle and foot; L03.116 Cellulitis of left lower limb; E11.52 Type 2 diabetes mellitus with diabetic peripheral angiopathy with gangrene; I96 Gangrene, not elsewhere classified; E11.621 Type 2 diabetes mellitus with foot ulcer; L97.529 Non-pressure chronic ulcer of other part of left foot with unspecified severity; E87.1 Hypo-osmolality and hyponatremia; D69.6 Thrombocytopenia, unspecified; R04.0 Epistaxis; E11.42 Type 2 diabetes mellitus with diabetic polyneuropathy; I12.9 Hypertensive chronic kidney disease with stage 1 through stage 4 chronic kidney disease, or unspecified chronic kidney disease; E11.22 Type 2 diabetes mellitus with diabetic chronic kidney disease; N18.3 Chronic kidney disease, stage 3 (moderate); I48.2 Chronic atrial fibrillation; N40.0 Benign prostatic hyperplasia without lower urinary tract symptoms; K21.9 Gastro-esophageal reflux disease without esophagitis; I25.10 Atherosclerotic heart disease of native coronary artery without angina pectoris; E78.5 Hyperlipidemia, unspecified; F41.9 Anxiety disorder, unspecified; F32.9 Major depressive disorder, single episode, unspecified; R16.1 Splenomegaly, not elsewhere classified; D50.9 Iron deficiency anemia, unspecified; E66.9 Obesity, unspecified; Z79.01 Long term (current) use of anticoagulants; Z87.891 Personal history of nicotine dependence; Z86.718 Personal history of other venous thrombosis and embolism; Z86.73 Personal history of transient ischemic attack (TIA), and cerebral infarction without residual deficits; Z79.82 Long term (current) use of aspirin; Z79.4 Long term (current) use of insulin; Z98.1 Arthrodesis status; Z89.422 Acquired absence of other left toe(s); Z68.30 Body mass index [BMI] 30.0-30.9, adult
CPT/HCPCS: 71045; 73630; 73700; 73720; 76705; 80048; 80053; 80162; 80202; 81003; 82948; 83036; 83605; 83735; 84484; 85014; 85018; 85025; 85027; 85049; 85610; 85651; 85730; 86140; 86850; 86870; 86900; 86901; 86905; 86920; 87040; 87070; 87075; 87077; 87147; 87186; 87205; 87801; 88305; 88311; 93005; 94799; 99281; 99285; A6260; J0692; J1815; J1940; J2250; J2270; J2543; J3010; J3370; J7030; J7050; P9016; P9035

== ENCOUNTER → 2017-09-21 | Outpatient (CLI) | payer OTHER ==
[~2017-09-21] MED LIST changes: +BACTRIM,SEPT1 TABLET PO; +CORDARONE200 MG PO; +GABAPENTIN100 MG PO; +HUMALOG100 UNIT/1 SC; +PRAVACHOL40 MG PO; +TOUJEO SOL300 UNIT/1 SC; +TYLENOL PM EX-1 EACH PO
== END | disposition home or self-care (01) ==
LOC: PICC 15:00
DX: M86.9 Osteomyelitis, unspecified (principal)
CPT/HCPCS: 71045; 76937